=== PATIENT | female | born 1980 | race Caucasian/White ===

== ENCOUNTER 2018-07-20 08:14 | Emergency (ER) | payer MEDICAID ==
[~2018-07-20] VITALS: Ht 137.2 cm; Wt 63.0 kg
[2018-07-20 08:29] VITALS: BP 116/75; Ht 137.2 cm; Wt 63.0 kg
== END 2018-07-20 10:33 | disposition left against medical advice (07) ==
LOC: ED 08:14
DX: Z53.21 Procedure and treatment not carried out due to patient leaving prior to being seen by health care provider (principal)